=== PATIENT | male | born 1955 | race Caucasian/White ===

== ENCOUNTER 2017-03-31 21:26 | Observation (INO) | payer OTHER ==
[~2017-03-31] VITALS: Ht 180.3 cm; Wt 102.8 kg
[~2017-03-31 21:26] MED LIST: ASPI-973 PO; ATOR20TA PO; CLOP75TA28 PO; LOSA50TA37 PO; METF500T4 PO; METO-272 PO; MULT-1018 PO; NITR0.4T6 SL; OMEG1CAP99 PO; SPIR25TA3 PO; VIT D3 PO; ZINC50TA4 PO
[2017-03-31 21:38] VITALS: BP 115/64; PULSE 74; RESP 18; O2SAT 99
--- NOTE | 2017-03-31 21:52 | ED.REPORT ---
HPI-Abd Pain M 40 and Over Date of Service Mar 31, 2017 ED Provider: Esau Delgadillo MD Pt is a 61 year old male with a hx of DM, MA, HTN and chronic lymphocytic leukemia presenting to the ED complaining of abdominal pain onset this morning. Associated symptoms include nausea, vomiting, diarrhea, malaise, and a fever ( 102.7 at home). Denies bloody diarrhea, dysuria, decreased urination, or urinary frequency. Has CLL, thought to be presently in remission, no cytotoxic chemotherapy in about 6 months Nursing Notes Stated Complaint: HIGH FEVER, VOMITING AND DIARRHEA Chief Complaint: Male Abdominal Pain Nursing Notes Reviewed: Yes Allergies: Coded Allergies: allopurinol (Verified Allergy, Severe, rash , swelling to face, and causes sores in mouth and nose, 03/31/17) Pt had rash all over body and face, swelling to face, and had sore to oral cavitiy and nose niacin (Verified Allergy, Severe, RASH, 03/31/17) Penicillins (Verified Allergy, Intermediate, Rash, 03/31/17) Scheduled ([Vit D3]) 2,000 IU PO DAILY Aspirin (Aspirin) 81 Mg Tablet 81 MG PO DAILY Atorvastatin (Lipitor) 20 Mg Tablet 20 MG PO DAILY Clopidogrel (Clopidogrel) 75 Mg Tablet 75 MG PO DAILY HOLD FOR SURG Losartan Potassium (Losartan Potassium) 50 Mg Tablet 25 MG PO DAILY Metformin (Metformin) 500 Mg Tablet 500 MG PO BID Metoprolol Succinate ER (Metoprolol Succinate ER) 50 Mg Tab.er.24h 25 MG PO DAILY Multivitamin (Multi Vitamin Daily) 1 Each Tablet 1 EACH PO DAILY Nitroglycerin SL (Nitroglycerin SL) 0.4 Mg Tab.subl 0.4 MG SL PRN Spironolactone (Spironolactone) 25 Mg Tablet 12.5 MG PO DAILY Zinc Gluconate (Zinc) 50 Mg Tablet 50 MG PO DAILY Miscellaneous Medications Empire-3 Fatty Acids/Fish Oil (Fish Oil 1,200 mg Softgel) 1 Each Capsule 2 EACH PO General Time Seen by MD: 21:49 Chief Complaint Abdominal pain Hx Obtained From: Patient Arrived By: Walk-in Sudden in Onset?: Yes Onset Occurred: 9 - 12 hours ago Symptom Duration: Since onset Progression since Onset: Constant Location: : Diffuse Quality: Painful Severity: Current: Moderate Severity: Maximum: Moderate Recent Healthcare: No recent hospitalization Similar Sx Previous: No Past Medical History Past Medical History Notes: Oncologist: Dr. 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 Physical Exam Initial Vital Signs Vital Signs (First) Date Time Temp Pulse Resp B/P Pulse Ox O2 Delivery O2 Flow Rate FiO2 03/31/17 21:38 37.0 74 18 115/64 99 Room Air Initial VS: Reviewed Head / Eyes: Atraumatic, Normocephalic, PERRL Neurologic: Alert, Oriented, Nonfocal Psychiatric: Mood/affect normal, Behavior normal, Normal thought content General/Constitutional: Awake, Alert, No acute distress Respiratory / Chest: Atraumatic, Breath sounds NL, Breath sounds = bilat, No respiratory distress Cardiovascular: Heart rate NL, Regular rhythm, Heart sounds NL, No gallop, No murmurs, No rubs Abdomen: Atraumatic, BS normoactive Abdominal right sided tenderness Back: Atraumatic, Inspection NL, Full range of motion, No CVA tenderness ENT: Atraumatic, Airway patent, Mucous membranes moist, Pharynx NL Skin: Warm, Dry, Intact Neck: Atraumatic, Supple, No meningismus, Full range of motion, No adenopathy, No JVD Interpretation & Diagnostics Lab Results Interpretation Result Diagram: 03/31/17215403/31/172154 Test 03/31/17 21:55 03/31/17 22:52 White Blood Count 1.8th/mm3 (3.8-10.1) Red Blood Count 4.10mil/mm3 (4.40-5.80) Hemoglobin 13.5g/dL (13.8-17.2) Hematocrit 37.7% (41.0-50.0) Mean Corpuscular Volume 92.0fL (81-100) Mean Corpuscular Hemoglobin 32.9pg (27.0-35.0) Mean Corpuscular Hemoglobin Concent 35.8% (32.0-37.0) Red Cell Distribution Width 12.8% (12.3-15.4) Platelet Count 108bil/L (150-400) Neutrophils (%) (Auto) 87.0% (40-74) Lymphocytes (%) (Auto) 10.3% (14-46) Monocytes (%) (Auto) 1.6% (4-12) Eosinophils (%) (Auto) 0% (0-5) Basophils (%) (Auto) 0% (0-3) Hematology Comments Sodium Level 134mEq/L (134-144) Potassium Level 3.6mEq/L (3.5-5.2) Chloride Level 95mEq/L (97-108) Carbon Dioxide Level 21mmol/L (18-29) Blood Urea Nitrogen 14mg/dL (8-27) Creatinine 0.84mg/dL (0.76-1.27) Estimat Glomerular Filtration Rate 99mL/min (>59) Glucose Level 153mg/dL (60-99) Calcium Level 9.5mg/dL (8.5-10.1) Magnesium Level 1.5mg/dL (1.6-2.6) Aspartate Amino Transf (AST/SGOT) 20U/L (0-50) Alanine Aminotransferase (ALT/SGPT) 19U/L (0-44) Alkaline Phosphatase 62U/L (25-160) Total Protein 6.9g/dL (6.4-8.4) Albumin 4.2g/dL (3.4-5.0) Lipase 22U/L (13-60) Hold Siegel Top Tube Received (Received) Urine Color Yellow (YELLOW) Urine Appearance Clear (CLEAR,HAZY) Urine pH 6.0 (5.0-8.0) Urine Specific [place] 1.010 (1.003-1.035) Urine Protein Negativemg/dL (NEG,TRACE) Urine Glucose (UA) 500mg/dL (NEGATIVE) Urine Ketones Negativemg/dL (NEGATIVE) Urine Occult Blood Trace (NEGATIVE) Urine Nitrite Negative (NEGATIVE) Urine Bilirubin Negative (NEGATIVE) Urine Urobilinogen Normalmg/dL (NORMAL) Urine Leukocyte Esterase Negative (NEGATIVE) Urine RBC 0-2/hpf (0-2) Urine WBC 0-5/hpf (0-5) Urine Epithelial Cells Occasional/hpf (NONE-MOD) Urine Crystals None seen (NONE SEEN) Urine Bacteria None/hpf (NONE-FEW) Urine Hyaline Casts None/lpf (NONE) Urine Granular Casts None seen (NONE SEEN) Urine Waxy Casts None seen (NONE SEEN) Urine Red Blood Cell Casts None seen (NONE SEEN) Urine White Blood Cell Casts None seen (NONE SEEN) Urine Mucus Present (None Seen) Urine Trichomonas None seen (NONE SEEN) Urine Yeast None (NONE SEEN) Urinalysis Comment None Urine Culture Reflexed Not indicated X-Ray Chest Interpretation Chest Xray Interpretation: No acute disease. View: Portable, 1 view Interpretation / Wet Read by: Wet read ED physician Re-Eval/Medical Decision Med Decision/Clinical Course 6-year-old male with history of CLL presenting with a fever and diarrhea. Vital signs are reassuring however he looks ill. Blood cultures have been obtained, no other source for fever as identified at present, he has not yet produced stool though the PCR panel has been ordered. Was treated with antipyretics and IV fluids as well as nausea medications. Will be admitted to the hospitalist service on observation status. ANC 1566 Time of Eval: 23:08 Patient Status: Condition improved Re-Evaluation/Progress Note: Pt reports that he feels hot, but his abdominal pain is improved. RLQ tenderness to palpation. Discussed plan for probable admission. Pt understands and agrees. Time of Eval: 23:38 Patient Status: Condition improved Re-Evaluation/Progress Note: Discussed consultation with Dr. Salas and plan for admission. Consultation #1: Referral / Consult Name: Asher Salas MD Call Returned at: 23:14 Supervisor Sandblaster: Agrees with plan Note: Oncology. Agrees with plan for admission. Consultation #2: Referral / Consult Name: Sarah Larsen DO Consulted With: Hospitalist Call Returned at: 00:00 Supervisor Sandblaster: Will see patient, Agrees with plan, Accepts admit Counseled Regarding: Diagnosis, Lab results, Need for admission Discharge & Departure Primary Impression: Fever Fever type: unspecified Qualified Code: R50.9 - Fever, unspecified Additional Impressions: Diarrhea Diarrhea type: unspecified type Qualified Code: R19.7 - Diarrhea, unspecified CLL (chronic lymphocytic leukemia) Disposition: ADMITTED TO HOSPITAL Vital Signs - All Vital Signs Date Time Temp Pulse Resp B/P Pulse Ox O2 Delivery O2 Flow Rate FiO2 03/31/17 23:59 37.9 87 24 107/58 91 Room Air 03/31/17 21:38 37.0 74 18 115/64 99 Room Air )( All Prior VS Reviewed: Yes Condition: Improved Referrals: Moshe Cloud MD (PCP) Sandyibkuldip Attestation Portions of this note were transcribed by Argenis Correa. I, Dr. Delgadillo personally performed the history, physical exam and medical decision-making; I reviewed and confirmed the accuracy of the information in the transcribed note. Signed by : Raul Benitez, 03/31/2017. copies to: Moshe Cloud MD, Donald L MD Mar 31, 2017 21:52 ARGENIS CORREA Mar 31, 2017 21:59
[2017-03-31 22:04] LABS: BASOPHILS % (AUTO) 0 % (0-3); EOSINOPHILS % (AUTO) 0 % (0-5); Mean Corpuscular Hemoglobin 32.9 pg (27.0-35.0)
[2017-03-31 22:06] LABS: MONOCYTES % (AUTO) 1.6 % (4-12); Platelet Count 108 bil/L (150-400)
[2017-03-31 22:35] LABS: Magnesium 1.5 mg/dL (1.6-2.6)
[2017-03-31 22:59] LABS: APPEARANCE,URINE CLEAR (CLEAR,HAZY); COLOR,URINE YELLOW (YELLOW); OCCULT BLOOD,URINE TRACE (NEGATIVE); UROBILINOGEN,URINE NORMAL (NORMAL)
[2017-03-31] MEDS ORDERED: 0.9% Sodium Chloride 1,000 ML IV ONE (23:40)
[2017-03-31 23:59] VITALS: BP 107/58; PULSE 87; RESP 24; O2SAT 91
[2017-04-01] VITALS (15 sets, daily range): BP systolic 99–139; BP diastolic 54–80; PULSE 65–82; RESP 12–20; O2SAT 94–100
[2017-04-01] MEDS ORDERED: Polyethylene Glycol (PEG) 17 Gm Powder PO PRN (00:10)
[2017-04-01] MEDS ORDERED: Ondansetron 2 mg/mL 2 mL Inj IVPUSH PRN ×2 (00:10→18:55)
[2017-04-01] MEDS ORDERED: Alum-Mag Hydrox-Simeth 30 mL Suspension PO PRN (00:10)
[2017-04-01] MEDS ORDERED: Ondansetron 2 mg/mL 2 mL Inj ONE (00:51)
[2017-04-01] MEDS ORDERED: Succinylcholine Chloride 20 mg/mL 5 mL Inj ONE (00:51)
[2017-04-01] MEDS ORDERED: fentaNYL-PF 50 mCg/mL 2 mL Inj ONE (00:51)
[2017-04-01] MEDS ORDERED: Glycopyrrolate 0.2 MG/ML 1mL Inj ONE (00:51)
[2017-04-01] MEDS ORDERED: Neostigmine 1 mg/mL 10 mL Inj ONE (00:51)
[2017-04-01] MEDS ORDERED: Propofol 10,000 mCg/mL 20 mL Inj ONE (00:51)
[2017-04-01] MEDS: Heparin 5,000 Unit/mL Inj SUBQ SCH ×2 (01:32→12:01)
[2017-04-01] MEDS: 0.9% Sodium Chloride 1,000 ML IV SCH ×3 (01:32→22:24)
[2017-04-01 01:45] LABS: Bilirubin, Direct 0.4 mg/dL (0.0-0.3)
--- NOTE | 2017-04-01 01:58 | PCM.HPMED ---
Subjective Date of Service Apr 01, 2017 Primary Provider: Admitting Physician: Sarah Larsen DO Primary Care Physician: Moshe Cloud MD Attending Physician: Sarah Larsen DO Chief Complaint: Abdominal pain History of Present Illness: Sher Dickerson is a 61-year-old man with past medical history significant for mild diabetes, hypertension, dyslipidemia, coronary artery disease, prior AL in June 2014, CLL who presented to the [facility] Emergency Department due abdominal pain that started today. It began as epigastric and felt like "gas" and migrated down to the RLQ but feels fairly mild. The patient also noted nausea, vomiting, diarrhea, malaise, and a fever of 102.7 which was measured at home. He denies any hematemesis, hematochezia, dysuria, frequency, chest pain, cough. Reports no significant symptoms. No sick contacts. Denies any recent travel or antibiotic use. In the emergency department his vitals were stable. He was given 1L NS. Oncology was consulted by the ED physician who agreed to admission but no antibiotics were recommended. The patient has completed 4 cycles of FCR and is monitored without active therapy currently. Patient's white count during his last oncology visit was normal at 5.7 Review of Systems: A comprehensive review of systems was conducted with the patient and found to be negative except as above in the History of Present Illness Allergies Coded Allergies: allopurinol (Verified Allergy, Severe, rash , swelling to face, and causes sores in mouth and nose, 03/31/17) Pt had rash all over body and face, swelling to face, and had sore to oral cavitiy and nose niacin (Verified Allergy, Severe, RASH, 03/31/17) Penicillins (Verified Allergy, Intermediate, Rash, 03/31/17) Home Medications Sher Dickerson [id number] 1955 04/27/2016 04:00 PM Page: 08/31 aspirin 81 mg tablet,delayed release take 1 tablet by oral route every day atorvastatin 20 mg tablet take 1 tablet by oral route every day fenofibrate nanocrystallized 48 mg tablet take 1 tablet by oral route every day losartan 50 mg tablet take 0.5 tablet by oral route every day metFORMIN HCL 500 MG TABLET TAKE 1 TABLET BY MOUTH 2 TIMES EVERY DAY WITH MORNING AND EVENING MEALS metoprolol succinate ER 50 mg tablet,extended release 24 hr take 0.5 tablet by oral route every day Plavix 75 mg tablet take 1 tablet by oral route every day spironolactone 25 mg tablet take 0.5 tablet by oral route every day PMH Coronary artery disease s/p stent placement Hypertension. Dyslipidemia. 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 There was 45 % CD 38 expression, and highly complex karyotype, with FISH positive for loss of 1 VALERIA signal in 70% of nuclei, and lost of 1 IgH signal in 59% of nuclei. CT scan on February 25, 2016, showed generalized adenopathy, the largest lymph node, 2.2 cm short axis in left external iliac. Surgical History None Family History Family history of hypertension. Social History Hx Alcohol Use: Yes Hx Substance Use: No Hx Tobacco Use: No Smoking Status: Never Smoker Exam Vital Signs Vital Sign - Last Date Time Temp Pulse Resp B/P Pulse Ox O2 Delivery O2 Flow Rate FiO2 03/31/17 23:59 37.9 87 24 107/58 91 Room Air Exam General: No acute distress, well-developed, well-nourished, appropriately interactive HEENT: Normocephalic, atraumatic. External ears without defect. Pupils equal, round, and reactive to light and accommodation. Anicteric sclerae, moist conjunctivae, and no lid lag. Oropharynx free of erythema and cobble stoning with moist mucosa. Neck: Supple with full range of motion. No jugular venous distension. No lymphadenopathy or thyromegaly. Cardiovascular: Regular rate and rhythm with no murmurs, rubs, or gallops appreciated Pulmonary: Clear to auscultation bilaterally with no crackles, wheezes, or rhonchi. Normal respiratory effort with no use of accessory muscles. Abdomen: Bowel tones present. Obese. Soft, mild tenderness to palpation of RLQ, nondistended. No hepatosplenomegaly or masses appreciated. Extremities: No clubbing, cyanosis, edema, or lymphadenopathy appreciated. Skin: Normal temperature, turgor, and texture; no rash, ulcers, or subcutaneous nodules appreciated. Neurological: Cranial nerves grossly intact. Normal muscle strength, tone, and bulk. Normal speech. No known gait impairment. Psychiatric: Normal mood and affect. Alert and oriented to person, place, and time. Lab and Diagnostics Result Diagram: 03/31/17215403/31/172154 X-Rays, CTs and MRIs Reviewed by author, negative for acute pathology. Assessment & Plan Sher Dickerson is a 61-year-old man with past medical history significant for mild diabetes, hypertension, dyslipidemia, coronary artery disease, prior AL in June 2014, CLL who presented to the [facility] Emergency Department due fever and abdominal pain that started today. Fever with leukopenia and abdominal pain. 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 -No Neutropenia. ANC 1566 -No obvious signs or site of infection at this time. -Chest X ray showed no pneumonia and Urinalysis is negative. No skin infections noted. -monitor closely with IV fluids resuscitation -CT scan abdomen and pelvis to look for infectious etiology such as colitis -Procalcitonin ordered -Stool PCR -Blood cultures performed High-risk chronic lymphocytic leukemia -Completed 4 cycles of FCR. -Oncology consulted Chronic issues, present on admission, stable: Likely history of Gilbert's disease -Previously noted mild elevation of T. Bili without evidence of cholecystitis Type 2 Diabetes - hold Metformin while inpatient - Blood glucose checks, if consistently above 180 initiate Lantus Coronary artery Disease - Stable with no anginal symptoms or equivalent symptoms - continue Aspirin and Plavix - continue Statin and beta jessi Hypertension - continue Losartan 25 mg daily, Aldactone 12.5 mg daily and Metoprolol 25 mg daily Hyperlipidemia - Atorvastatin 20 mg daily and Fenofibrate 48 mg daily CODE STATUS: FULL CODE Patient is admitted under observation status with expected length of stay less than 2 midnights due to severity of presenting symptoms, risk of adverse event, and complexity of treatment plan. VTE Prophylaxis: Sub-Q Heparin (Unfractionated) Resuscitation Status: CPR: Attempt Resuscitation Attending Statement The patient was seen and examined together with house staff on 04/01/2017 and I agree with the history, exam and plan as outlined in the note above. Sada Quijano DO Apr 01, 2017 01:01 Sarah Larsen DO Apr 01, 2017 05:09
--- NOTE | 2017-04-01 06:37 | NUR ---
Anxiety anxious about multiple things at start of shift. 1:1 provided to answer all questions and prn Ativan given per patient request. Once questions answered and Ativan taken patient less anxious. Currently resting in bed without any complaints. Addendum: 04/01/17 at 0639 by CRIS LYON RN Charted on wrong patient. Please disregard this note.
--- NOTE | 2017-04-01 06:39 | NUR ---
Admit Admitted to 1030 from ED via stretcher. Able to ambulate on arrival. Denies CP or discomfort. Tele SR. RA w/o c/o SOB. Currently denies n/v/d for which he stated he was experiencing prior to admit. Denies abdominal pain at this time but states RLQ pain at home. NS @ 100ml/hr initiated per orders. Personal belongings at bedside per patient request. Oriented to room and call light use with return demonstration. Currently resting in bed without any complaints.
[2017-04-01] MEDS ORDERED: FENO48TA4 PO (07:11)
--- NOTE | 2017-04-01 07:57 | DRSVH ---
PROCEDURE: X-RAY CHEST ONE VIEW, PORTABLE ([id number]) INDICATIONS: fever TECHNIQUE: One view of the chest was acquired. COMPARISON: [facility], CR, XR CHEST 1VW (PORTABLE), 05/14/2016, 1:30. FINDINGS: Surgical changes and devices: None. Lungs and pleura: No pleural effusions or pneumothorax. Lungs are clear. Mediastinum: Mediastinal contours appear normal. Heart size is normal. Bones and chest wall: No suspicious bony lesions. Overlying soft tissues appear unremarkable. IMPRESSION: No acute disease. Dictated by: Troy Polanco M.D. on 04/01/2017 at 7:54 Approved by: Troy Polanco M.D. on 04/01/2017 at 7:55
[2017-04-01 10:02] LABS: MONOCYTES % (AUTO) 6.3 % (4-12); Mean Corpuscular Hemoglobin 32.8 pg (27.0-35.0); Mean Corpuscular Volume 95.2 fL (81-100); NEUTROPHILS % (AUTO) 85.8 % (40-74); Platelet Count 96 bil/L (150-400)
[2017-04-01 10:03] LABS: BASOPHILS % (AUTO) 0.1 % (0-3); EOSINOPHILS % (AUTO) 0.1 % (0-5)
[2017-04-01 10:12] LABS: Magnesium 1.7 mg/dL (1.6-2.6)
--- NOTE | 2017-04-01 10:52 | DRSVH ---
PROCEDURE: CT ABDOMEN AND PELVIS WITH CONTRAST ([id number]) INDICATIONS: abd pain, CLL TECHNIQUE: After the administration of oral and intravenous contrast, 5 mm thick sections acquired from the diap hragms to the symphysis. 5 mm thick coronal and sagittal reformats were performed. For radiation do se reduction, the following was used: automated exposure control, adjustment of mA and/or kV accordi ng to patient size. COMPARISON: [facility], CT, CT ABD PELVIS W CON, 05/14/2016, 3:51. FINDINGS: Image quality: Excellent. ABDOMEN: Lung bases: Lung bases are clear. Heart size is normal. Solid organs: Liver and spleen are normal in size and enhancement. Gallbladder appears normal. Yonatan iary system is non-dilated. Pancreas enhances normally. No adrenal nodules. Kidneys are normal in size and enhancement, without hydronephrosis. Peritoneum and bowel: Stomach, small bowel, and colon loops are normal in caliber and wall thickness . No free fluid or air. Nodes and vessels: No retroperitoneal or mesenteric adenopathy. Aorta and inferior vena cava are no rmal in caliber. Miscellaneous: No ventral hernias. PELVIS: Genitourinary: Bladder wall thickness is normal. Miscellaneous: No inguinal hernias or adenopathy. At the right lower quadrant adjacent to the cecum there is mild edema in the pericolonic fat, and the appendix is distended, elongated, measures up to 1.3 cm in maximal diameter and shows CT findings characteristic of acute appendicitis. No periappen diceal abscess found. Bones: No suspicious bony lesions. No vertebral body compression fractures. IMPRESSION: Acute appendicitis right lower quadrant, without periappendiceal abscess. An appendicoli th is not seen. No adenopathy is found. The spleen and liver are normal in size. Surgical consultation is recommended at this time. This information was immediately called and discu ssed in detail with the nurse taking care of the patient who will contact the hospitalist (I have not been able to contact the hospitalist at the phone number provided). If the nurse cannot contact the hospitalist she ([email or web address]) will directly contact the surgeon senior electrical controls engineer with this information. Dictated by: Troy Polanco M.D. on 04/01/2017 at 10:38 Approved by: Troy Polanco M.D. on 04/01/2017 at 10:50
[2017-04-01] MEDS ORDERED: Piperacillin-Tazo 3.375 Gm Inj 3.375 GM in Dextrose 5% Minibag Plus 50 ML IV SCH (11:05)
--- NOTE | 2017-04-01 14:12 | CONS ---
[address] [address] CONSULTATION REPORT PATIENT: RUPINDER GARRETT : 1955 MR#: [id number] ADMIT: 04/01/2017 JOB ID: [id number] DATE OF SERVICE: 04/01/2017 CHIEF COMPLAINT: Abdominal pain. HISTORY OF PRESENT ILLNESS: The patient is a 61-year-old man with a history of CLL, who presented to the emergency department last night with an approximately 1-day history of right flank pain, as well as nausea, vomiting, diarrhea, and fever of 102.7. Because he is an established oncology patient, he spoke with them over the phone and they recommended admission to the hospital without antibiotics. He has not had any blood in his stool. Today, he continues to have pain which is in his right flank and right lower quadrant. He states that he has had pain like this in the past but never as severe. PAST MEDICAL HISTORY: CLL, last treated with chemotherapy approximately six months ago. Mild type 2 diabetes mellitus, hypertension, hyperlipidemia, coronary artery disease with myocardial infarction in June 2014. PAST SURGICAL HISTORY: Port-A-Cath placement. MEDICATIONS: Include: 1. Aspirin 81 mg. 2. Atorvastatin. 3. Fenofibrate. 4. Losartan. 5. Metformin. 6. Metoprolol. 7. Plavix. 8. Spironolactone. SOCIAL HISTORY: He has never smoked. He drinks alcohol socially and denies illicit drug use. FAMILY HISTORY: Positive for hypertension. REVIEW OF SYSTEMS: A 10-point review of systems is negative except as described in the history of present illness, specifically no unplanned weight loss. PHYSICAL EXAMINATION: Body mass index 31.6. Temperature 36.6, pulse 81, blood pressure 115/68, saturation 94% on room air. General: He is sitting up in bed, in no acute distress. HEENT: Sclerae are anicteric. Mucous membranes are moist. Neck: No lymphadenopathy. Chest: Clear to auscultation bilaterally. Heart: Regular rate and rhythm. No murmurs. Abdomen is obese, but soft, nondistended. He is mildly tender in the right flank. There are no hernias. There are no palpable masses. Extremities: No edema. Neuro: No deficits. Psychiatric: Affect is appropriate. LABORATORIES: White blood cell count is 12.1, hematocrit 36.0, platelets 96. Creatinine 0.85, glucose 175. Bilirubin 1.8. Albumin 3.8. Procalcitonin 81.1. IMAGING: A CT scan of the abdomen and pelvis shows a distended appendix with mild edema in the pericolonic fat. Appendix measures 1.3 cm in maximum diameter. No evidence of periappendiceal abscess. There is no appendicolith. No adenopathy is seen. Liver and spleen are normal in size. ASSESSMENT AND PLAN: A 61-year-old man with a history of CLL, with acute appendicitis. We have reviewed the pathophysiology of appendicitis. While some patients may be appropriate for nonoperative treatment with antibiotics alone without an appendicolith, I do not think that is appropriate for this patient, who potentially could have a mild degree of immunosuppression from his CLL. Note that he was leukopenic upon admission with his white blood cell count, last night being 1.8. Unfortunately, immediately after his CT scan, he had a full breakfast, so has only been n.p.o. since 11:00 a.m. Recommendation is that we go to surgery after 8 hours of n.p.o. for laparoscopic appendectomy. Technical aspects of surgery were discussed. Risks of surgery were discussed, including, but not limited to, bleeding, infection, conversion to open surgery, injury to other structures. All his questions were answered. He will be placed on antibiotics. Postoperative course will depend on findings at the time of surgery regarding perforation or not of the appendix.
--- NOTE | 2017-04-01 15:22 | NUR ---
NPO Pt has been NPO since about 1030AM. He will be going for surgery this evening around 1900. pt and aware of plan of care. NS infusing at 100cc/hr. pt AOX3. Care ongoing.
[2017-04-01] MEDS: HYDROcodone-APAP 5-325 mg Tablet PO PRN (15:50)
[2017-04-01] MEDS ORDERED: Lactated Ringer's 1,000 ML IV ONE ×2 (17:53→19:39)
[2017-04-01] MEDS ORDERED: Lactated Ringer's 1,000 ML IV SCH (18:51)
[2017-04-01] MEDS ORDERED: Lactated Ringer's 500 ML IV PRN (18:51)
--- NOTE | 2017-04-01 18:54 | NUR ---
Off floor to OR Pt AOX3. at bedside. Consent signed this morning with Dr. Ramirez. Tele made aware pt off to OR. BG 128.
[2017-04-01] MEDS ORDERED: Labetalol 5 mg/mL 4 mL Inj IV PRN (18:55)
[2017-04-01] MEDS ORDERED: HYDROmorphone 1 mg/mL Inj IVPUSH PRN (18:55)
[2017-04-01] MEDS ORDERED: MetoCLOpramide 5 mg/mL 2 mL Inj IVPUSH PRN (18:55)
[2017-04-01] MEDS ORDERED: fentaNYL-PF 50 mCg/mL 2 mL Inj IVPUSH PRN (18:55)
[2017-04-01] MEDS ORDERED: Atropine 0.4 mg/mL Inj IVPUSH PRN (18:55)
[2017-04-01] MEDS ORDERED: Phenylephrine 10,000 mCg/mL Inj IVPUSH PRN (18:55)
[2017-04-01] MEDS ORDERED: EPHEDrine Sulfate 50 mg/mL Inj IVPUSH PRN (18:55)
--- NOTE | 2017-04-01 19:32 | PCM.HPANE ---
Patient Data Surgeon Admitting Provider:Sarah Larsen DO Attending Provider:Jim Hawkins MD Primary Care Physician:Moshe Cloud MD Other Provider: Reason for Visit Febrile Illness,Diarrhea Cell FEBRILE ILLNESS,DIARRHEA CELL Ht/WT & BMI Height (Feet): 5 Height (Inches): 11.00 Weight (Kilograms): 102.800 Body Mass Index 31.73 Allergies Coded Allergies: allopurinol (Verified Allergy, Severe, rash , swelling to face, and causes sores in mouth and nose, 03/31/17) Pt had rash all over body and face, swelling to face, and had sore to oral cavitiy and nose niacin (Verified Allergy, Severe, RASH, 03/31/17) Penicillins (Verified Allergy, Intermediate, Rash, 03/31/17) Past Anesthesia History Anesthesia History: Denies:: Abnormal Airway, Anesthesia Reactions, Difficult Intubation, Fam Anesthesia Reaction, Fam Malignant Hypertherm, Malignant Hyperthermia Diabetes History Hx Diabetes?: Yes Type of Diabetes: Type II Glycemic Control: Oral Medication Current Bedside Blood Glucose: 163 MRSA MRSA: No Medications Blood Thinner: Aspirin, Plavix Hypertension Medication: Yes Home Meds Incl Beta Michela: No Reported Medications Fenofibrate Nanocrystallized (Fenofibrate)48 Mg Dzxrns50 Mg PO DAILY Ref 0 04/01/17 Multivitamin (Multi Vitamin Daily)1 Each Tablet1 Each PO DAILY 30 Days Ref 0 04/12/16 Zinc Gluconate (Zinc)50 Mg Apapxv52 Mg PO DAILY 02/15/16 [Vit D3] No Conflict Check2,000 Iu PO DAILY 02/15/16 [place]-3 Fatty Acids/Fish Oil (Fish Oil 1,200 mg Softgel)1 Each Capsule2 Each PO 02/15/16 Metformin 500 Mg Ommwym401 Mg PO BID Ref 0 02/15/16 Nitroglycerin SL 0.4 Mg Tab.subl0.4 Mg SL PRN 02/15/16 Aspirin 81 Mg Jmbqgo02 Mg PO DAILY Ref 0 02/15/16 Spironolactone 25 Mg Gxhwtl85.5 Mg PO DAILY #30 TABLET Ref 0 02/15/16 Clopidogrel 75 Mg Vkddpn96 Mg PO DAILY Ref 0 HOLD FOR SURG 02/15/16 Atorvastatin (Lipitor)20 Mg Nimpuo36 Mg PO DAILY Ref 0 02/15/16 Losartan Potassium 50 Mg Yjqcuj69 Mg PO DAILY 02/15/16 Metoprolol Succinate ER 50 Mg Tab.er.24h25 Mg PO DAILY Ref 0 02/15/16 History History of ENT Problems?: Yes HEENT History: Positive for:: Hearing Problem Denies:: Abnormal Airway Cataracts Difficult Intubation Dysphagia Glaucoma Sinus Problem TMJ Denture Type: None Teeth Condition: Within Normal Limits Hx of Heart Problems?: Yes Cardiovascular History: Positive for:: Chest Pain (prior to stent X 2 placement in one artery) Hypertension Denies:: AICD Cardiac Surgery Congestive Heart Failure Edema Heart Murmur Irregular Heartbeat Pacemaker Thrombophlebitis Other Cardiac History: > 4 METS Not taking metoprolol or plavix per patient and . Hx of Respiratory Problem?: No Respiratory History: Denies:: Asthma COPD Chest Surgery Cough Dyspnea Emphysema Hemoptysis Oxygen Administration Pneumonia Pulmonary Embolism Tuberculosis Use of C-PAP Machine Use of Inhalers / NEBS Hx Neurologic Problems?: No Neurological History: Denies:: Alzheimer's Disease CVA Dementia Dizziness Headaches Multiple Sclerosis Parkinson's Disease Peripheral Neuropathy Seizures TIA Hx of GI Problems?: No Hx of Problems?: No Genitourinary History: Denies:: HX of Hemodialysis Kidney Stones Urinary Tract Infection HX of Peritoneal Dialysis: No Male Hx: Denies:: Prostate Problems Scrotal Mass Testicular Surgery Hx Musculoskeletal Problems?: No Musculoskeletal History: Denies:: Back Injury Joint Replacement Musculoskeletal Trauma Hx of Psycho/Social Problems?: No Psycho Social History: Denies:: Anxiety Bipolar Disorder Hx Depression Suicide Attempt Hx Surgeries?: Yes (port, stents) Hx Any Other Health Problems?: Yes Other History: Positive for:: Cancer (New CLL diagnosis) Hospitalization (Only for port placement) Denies:: Thyroid Disease History Blood Transfusions: Positive for:: Accept Blood Products? Denies:: Blood Transfusions Hx Diabetes: YesBedside Blood Glucose: 163 Hx Alcohol Use: YesHx Substance Use: No Smoking Status: Never Smoker Have You Smoked inLast 12 mo: No Stop/Bang Treated for Sleep Apnea?: No Do You Have a CPAP Machine?: No S-Snoring: Do You Snore Loudly: Yes T-Tired: feel tired, fatigued: Yes O-Obsered: Observed not breath: Yes P-Blood Pressure: treated: Yes B- Body Mass Index > 35 kg/m2: No A- Age over 50: Yes N- Neck Large Circumference: No G- Gender Male: Yes TANA Total Score: 5 TANA Risk Assessment: High Risk, =/>3 Yes Risk Assessment Category Category 1A: Patient has history of documented sleep apnea, and HAS NOT received any narcotic, sedative or anesthesia administration during this stay. Category 1B: Patient has history of documented sleep apnea, and HAS received any narcotic , sedative or anesthesia administration during this stay Category 2: Patient has SUSPECTED Obstructive Sleep Apnea, and HAS received any narcotic , sedative or anesthesia administration during this stay. Category 3: Patient has SUSPECTED Obstructive Sleep Apnea and HAS NOT received narcotic, sedative or anesthesia administration during this stay. Category 4: Outpatient in Procedural Areas with known sleep apnea or who screen positive for High Risk via the STOP/BANG questionnaire. Exam Exam Vital Signs Vital Signs Date Time Temp Pulse Resp B/P Pulse Ox O2 Delivery O2 Flow Rate FiO2 04/01/17 15:41 36.7 68 107/71 04/01/17 14:10 99/64 04/01/17 13:24 37.2 71 17 99/61 96 Room Air 04/01/17 10:33 81 General Appearance: Alert, Oriented X3, Cooperative, No Acute Distress HEENT/AIRWAY: MP 2 Lungs: Clear to Auscultation, Normal Air Movement Heart: Exam Unremarkable, Regular Rate/Rhythm, No Murmurs/Rubs/Gallops Meds/Labs/Diagnostics Admission Meds Current Medications Sodium Chloride (Normal Saline) 1,000 ml @ 0 mls/hr Q0M ONCE IV Last administered on 03/31/17 23:58; Start 03/31/17 at 23:40; Stop 03/31/17 at 23:41; Status DC Heparin Sodium (Porcine) 5000 unit 5,000 unit Q8 SUBQ Last administered on 12:01; Start 04/01/17 at 00:30; Stop 04/01/17 at 16:56; Status DC Sodium Chloride 1,000 ml @ 100 mls/hr Q10H IV Last administered on 04/01/17 12 :01; Start 04/01/17 at 00:07 Piperacillin Sod/ Tazobactam Sod/ Dextrose/Water (Zosyn 3.375 Gm Inj/D5W Minibag Plus) 50 ml @ 12.5 mls/hr Q8 IV Last administered on 04/01/17 12:01; Start 8/5/17 at 11:05; Stop 04/01/17 at 16:56; Status DC Bedside Blood Glucose: 163 Labs Test 03/31/17 21:55 03/31/17 22:52 04/01/17 01:33 04/01/17 09:20 Hematology Comments Lipase 22U/L (13-60) Hold Siegel Top Tube Received (Received) Urine Color Yellow (YELLOW) Urine Appearance Clear (CLEAR,HAZY) Urine pH 6.0 (5.0-8.0) Urine Specific [place] 1.010 (1.003-1.035) Urine Protein Negativemg/dL (NEG,TRACE) Urine Glucose (UA) 500mg/dL (NEGATIVE) Urine Ketones Negativemg/dL (NEGATIVE) Urine Occult Blood Trace (NEGATIVE) Urine Nitrite Negative (NEGATIVE) Urine Bilirubin Negative (NEGATIVE) Urine Urobilinogen Normalmg/dL (NORMAL) Urine Leukocyte Esterase Negative (NEGATIVE) Urine RBC 0-2/hpf (0-2) Urine WBC 0-5/hpf (0-5) Urine Epithelial Cells Occasional/hpf (NONE-MOD) Urine Crystals None seen (NONE SEEN) Urine Bacteria None/hpf (NONE-FEW) Urine Hyaline Casts None/lpf (NONE) Urine Granular Casts None seen (NONE SEEN) Urine Waxy Casts None seen (NONE SEEN) Urine Red Blood Cell Casts None seen (NONE SEEN) Urine White Blood Cell Casts None seen (NONE SEEN) Urine Mucus Present (None Seen) Urine Trichomonas None seen (NONE SEEN) Urine Yeast None (NONE SEEN) Urinalysis Comment None Urine Culture Reflexed Not indicated Direct Bilirubin 0.4mg/dL (0.0-0.3) Lactate Dehydrogenase 286U/L (100-190) White Blood Count 12.1th/mm3 (3.8-10.1) Red Blood Count 3.78mil/mm3 (4.40-5.80) Hemoglobin 12.4g/dL (13.8-17.2) Hematocrit 36.0% (41.0-50.0) Mean Corpuscular Volume 95.2fL (81-100) Mean Corpuscular Hemoglobin 32.8pg (27.0-35.0) Mean Corpuscular Hemoglobin Concent 34.4% (32.0-37.0) Red Cell Distribution Width 13.1% (12.3-15.4) Platelet Count 96bil/L (150-400) Neutrophils (%) (Auto) 85.8% (40-74) Lymphocytes (%) (Auto) 5.8% (14-46) Monocytes (%) (Auto) 6.3% (4-12) Eosinophils (%) (Auto) 0.1% (0-5) Basophils (%) (Auto) 0.1% (0-3) Sodium Level 138mEq/L (134-144) Potassium Level 4.1mEq/L (3.5-5.2) Chloride Level 99mEq/L (97-108) Carbon Dioxide Level 23mmol/L (18-29) Blood Urea Nitrogen 11mg/dL (8-27) Creatinine 0.85mg/dL (0.76-1.27) Estimat Glomerular Filtration Rate 97mL/min (>59) Glucose Level 175mg/dL (60-99) Calcium Level 8.5mg/dL (8.5-10.1) Magnesium Level 1.7mg/dL (1.6-2.6) Total Bilirubin 1.8mg/dL (0.0-1.2) Aspartate Amino Transf (AST/SGOT) 26U/L (0-50) Alanine Aminotransferase (ALT/SGPT) 29U/L (0-44) Alkaline Phosphatase 48U/L (25-160) Total Protein 5.8g/dL (6.4-8.4) Albumin 3.8g/dL (3.4-5.0) Procalcitonin 81.10ng/mL (0.00-0.08) Plan Impression Patient chart reviewed, patient interviewed and anesthestic plan with risks, benefits, and alternatives discussed, and informed consent obtained. NPO per Anesth. Guidelines: Yes ASA Physical Status: ASA2 Mod Systemic Disease Anesthetic Plan: GA Bene/Risks/Altern/Consents: Yes HP Complete Prior to Induction: Yes Hugo Estrada MD Apr 01, 2017 17:55
[2017-04-01] MEDS ORDERED: Bupivacaine 0.5%/EPI 50 mL Inj INFILTRATE ONE (19:53)
--- NOTE | 2017-04-01 20:16 | PCM.SURGOP ---
Surgical Operative Report Date of Service: Apr 01, 2017 Pre Operative Diagnosis Acute appendicitis Post Operative Diagnosis Same, nonperforated Procedure: Laparoscopic appendectomy Surgeon and [employer]: Surgeon: Onesimo Ramirez MD Assistants: Bertram Horton PA-C Indication for Procedure 61-year-old man with a history of CLL who presented with right flank pain. He was initially leukopenic, but then today had a white blood cell count of 12. He had been febrile, with diarrhea, nausea and vomiting. A CT scan showed a distended appendix to 1.3 cm with periappendiceal inflammatory change. After discussion of risks and benefits, he agreed to proceed with laparoscopic appendectomy. Findings: The appendix was distended but not perforated. A small iatrogenic perforation occurred during positioning of the stapler. Procedure Details After smooth induction of general anesthesia, the patient was placed in the supine position with the left arm tucked. The abdomen was prepped and draped in wide sterile fashion. A procedural pause was performed according to the SCOAP checklist, and all were found to be in agreement. A curvilinear infraumbilical incision was made. Dissection was carried down with electrocautery until the midline fascia was incised vertically and the peritoneal cavity was entered without difficulty. Pneumoperitoneum was established. Two additional ports were placed under visualization. A 5 mm port was placed in the midline above the symphysis pubis, and a 12 mm port in the left lower quadrant, medial to the inferior epigastric vessels. The patient was placed head down with the right side up. The small bowel was retracted. The greater omentum was retracted. The appendix was visualized, which was retrocecal. It was indurated, but not perforated. It was bluntly mobilized and retracted. A window was created at the base of the appendix in the mesoappendix. The appendiceal stump was then divided using an Endo SENG stapler with a 45 mm blue load. During position of the stapler, a small iatrogenic perforation of the appendix occurred, and the stapler was fired closer to the cecum. The mesoappendix was divided with a vascular load, which required 2 separate staple firings. The appendix was placed into an Endo Catch bag. The right lower quadrant was irrigated and suctioned. The appendiceal stump was intact and the mesoappendix was hemostatic. The appendix was removed and passed off the field for permanent pathology. The 12 mm port was removed. The fascia of the 12 mm port site was closed using an inlet closure device with an 0 Vicryl suture. The remaining ports were removed under visualization and pneumoperitoneum was released. The skin incisions were closed using running 4- 0 Monocryl subcutaneous stitches. Steri-Strips and sterile dressings were applied. At the end of the case all needle and sponge counts were correct 2. The patient was awakened from anesthesia without difficulty, and taken to the recovery room in satisfactory condition, having tolerated the procedure well. Complications There were no periprocedural complications identified. Surgical Specimen Removed: Yes Specimen sent to Pathology: Yes Surgical Specimen description: Appendix Anesthetic Plan: GA Grafts, Implants: None Output, Estimated Blood Loss: 30 Blood Administration during keating: No Drains: None Catheters: None copies to: Mohse Cloud MD; Cary Munguia MD, Joshua D MD Apr 01, 2017 20:16
--- NOTE | 2017-04-01 20:43 | PCM.ANEP1 ---
Post Anesthesia PACU Phase 1 Assessment Vital Signs Vital Signs Date Time Temp Pulse Resp B/P Pulse Ox O2 Delivery O2 Flow Rate FiO2 04/01/17 20:35 37.1 65 12 110/54 98 Nasal Cannula 2 04/01/17 20:29 67 14 103/72 98 Nasal Cannula 2 04/01/17 20:25 72 16 119/80 97 Nasal Cannula 2 04/01/17 20:20 75 16 124/76 99 Simple Mask 8 04/01/17 20:18 36.7 77 14 139/64 100 Simple Mask 8 04/01/17 15:41 36.7 68 107/71 04/01/17 14:10 99/64 04/01/17 13:24 37.2 71 17 99/61 96 Room Air Anesthetic Administered: GA Level of Alertness: Awake, talking SEPULVEDA's with Equal Strength: Yes Pain: Yes Pain Scale Score: 3 Nausea or Vomiting: No CV Function & Hydration Stable: Yes Airway Device: Endotrachial Tube Oxygen Delivery: Simple Mask Lungs: Clear to Auscultation, Normal Air Movement PACU Phase 2 Assessment Complications: No Follow up Care: N/A Patient Instructions Provided: N/A Hugo Estrada MD Apr 01, 2017 20:43
[2017-04-01] MEDS: Piperacillin-Tazo 3.375 Gm Inj 3.375 GM in Dextrose 5% Minibag Plus 50 ML IV SCH (22:24)
--- NOTE | 2017-04-01 23:02 | NUR ---
Post Op Pt s/p lap appy - arrived via [facility] to OSC unit, 1030, at 2115. A&Ox3, SEPULVEDA, VSS, IV patent, Ambulated from [facility] to bed - gait steady, SCDs on, 3x lap sites with steris and bandaids - CDI, No complaints of pain until pt coughed - encouraged CDB and educated on splinting (additional pillow provided to pt), Pt tolerating clears with uriel crackers - no nausea, Educated re: gas pains that result from lap procedures - pt understanding, at bedside, Call light in reach. Care continues.
[2017-04-02 00:49] VITALS: BP 101/64; PULSE 69; RESP 16; O2SAT 97
[2017-04-02] MEDS: HYDROcodone-APAP 5-325 mg Tablet PO PRN ×2 (03:26→07:51)
[2017-04-02] MEDS: Piperacillin-Tazo 3.375 Gm Inj 3.375 GM in Dextrose 5% Minibag Plus 50 ML IV SCH (05:51)
[2017-04-02 05:55] VITALS: BP_SYST 89; BP_SYST 93; BP_DIAS 57; BP_DIAS 58; PULSE 61; RESP 16; O2SAT 95
[2017-04-02 06:03] LABS: BASOPHILS % (AUTO) 0.1 % (0-3); EOSINOPHILS % (AUTO) 0.6 % (0-5); MONOCYTES % (AUTO) 9.2 % (4-12); Mean Corpuscular Hemoglobin 32.8 pg (27.0-35.0); Mean Corpuscular Volume 98.5 fL (81-100); NEUTROPHILS % (AUTO) 78.9 % (40-74); Platelet Count 94 bil/L (150-400)
[2017-04-02 06:19] VITALS: PULSE 61
[2017-04-02] MEDS ORDERED: HYDR-4003 PO (07:24)
[2017-04-02] MEDS ORDERED: POLY17PO6 PO (07:24)
[2017-04-02] MEDS: 0.9% Sodium Chloride 1,000 ML IV SCH (07:53)
[2017-04-02] MEDS ORDERED: Glucose 40% Oral Gel 15 Gm Tube PO PRN (08:20)
--- NOTE | 2017-04-02 08:34 | NUR ---
Social Work: Screening D: EMR reviewed. Pt is a 61 y/o male admitted for febrile illness, diarrhea per H&P. Pt's insurance is [employer] and PCP is Moshe Arvizu MD. Pt is also followed bt oncologist for cancer diagnosis. Pt did not present to ER with symptoms related to cancer. Pt does not screen in for a full-assessment. SW will consult with MD during multidisciplinary rounds to further determine pt's needs and possible full assessment. Pt received appendectomy in OR on 04/01. Per EMR, pt has been alert and oriented x3 post-op. Pt is ambulating independently in room with a steady gate. Pt has no complaints of pain or nausea and spouse has been with pt at bedside. Pt's spouse is Abbey Moreno [phone]. Pt declined DPOA/advanced directive ppw upon admit. Pt lives at home with his spouse in [place]. SW will continue to follow and complete assessment if needs are indicated in multidisciplinary rounds. A: Pt who is independent at baseline P: Pt anticipated to discharge home. SW will consult with medical team in multidisciplinary rounds to determine and further SW needs. SW will continue to follow. NARCISO Munoz
--- NOTE | 2017-04-02 09:06 | PCM.DIMED ---
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 You were found to have acute appendicitis and underwent successful appendectomy on 04/01. Please continue pain medications as prescribed. Please follow-up with surgeon Dr Ramirez in 1 week. Follow-up Provider: Moshe Cloud MD Follow-up with PCP in: 2 weeks Provider: Onesimo Ramirez MD Follow-up in: 1 week Jim Hawkins MD Apr 02, 2017 09:06
[2017-04-02 10:00] VITALS: BP 98/69; PULSE 59; RESP 16; O2SAT 94
--- NOTE | 2017-04-02 11:00 | PROG NOTE ---
[address] [address] PROGRESS NOTE PATIENT: RUPINDER GARRETT : 1955 MR#: [id number] ADMIT: 04/01/2017 JOB ID: [id number] DATE: 04/02/2017 SUBJECTIVE: The patient is seen in followup. He feels pretty well this morning. He has no nausea. He is hungry. He has minimal pain, most significant along his left-sided laparoscopy incision. OBJECTIVE: Temperature 36.6, pulse 61, blood pressure 93/58, saturation 95% on 2 liters. General: He is resting in bed in no acute distress. Chest is clear. Heart regular rate and rhythm, no murmurs. Abdomen is soft, nondistended. His incisions are clean with no erythema. LABORATORIES: White count is 8.7, hematocrit 32.7, platelets 94, creatinine 0.64. Glucose 194. ASSESSMENT AND PLAN: A 61-year-old man with acute appendicitis, non-perforated, status post laparoscopic appendectomy. He is doing well clinically. I recommend stopping antibiotics. I think he can be discharged to home today. He should follow up in Surgery Clinic in one week for wound check.
[2017-04-02] MEDS ORDERED: Insulin LISPRO 300 Unit/3 mL Inj SUBQ SCH (12:00)
--- NOTE | 2017-04-02 12:30 | NUR ---
discharge of patient reviewed discharge instructions with patient and patient's , pt verbalized understanding. Pt discharged by walking out with prescriptions and instructions. IV and Telemetry previously discontinued. Pt left with to home self care.
--- NOTE | 2017-04-02 12:31 | NUR ---
Social Work: Readiness for Discharge/Multidisciplinary Rounds D: EMR reviewed. Pt is on day 1 of hospitalization admitted [facility]. Readmit risk score of 1. Pt discussed in multidisciplinary rounds - pt is medically stable to discharge home today via POV. MD did not indicate and SW discharge needs. No SW needs identified. Pt lives at home with his spouse in [place]. Pt to transport home with spouse via POV. A: Pt who is independent at baseline P: Pt to discharge home today with spouse via POV. SW consulted medical team in multidisciplinary rounds to determine and further SW needs. No SW needs identified, no MD orders received. SW will continue to follow until time of transport. NARCISO Munoz
--- NOTE | 2017-04-02 12:34 | NUR ---
Social Work: Discharge D: EMR reviewed. Pt is on day 1 of hospitalization admitted [facility]. Readmit risk score of 1. Pt discussed in multidisciplinary rounds - pt is medically stable to discharge home today via POV. MD did not indicate and SW discharge needs. No SW needs identified. Pt lives at home with his spouse in [place]. Pt to transport home with spouse via POV. A: Pt who is independent at baseline P: Pt to discharge home today with spouse via POV. SW consulted medical team in multidisciplinary rounds to determine and further SW needs. No SW needs identified, no MD orders received. SW will continue to follow until time of transport. NARCISO Munoz
--- NOTE | 2017-04-02 13:52 | PCM.DC.MED ---
Discharge Summary Date of Service Apr 02, 2017 Dates of Hospitalization Date of Hospital Admission Apr 01, 2017 at 00:50 Date of Discharge: Apr 02, 2017 Providers: Admitting Physician: Sarah Larsen DO Primary Care Physician: Moshe Cloud MD Attending Physician: Jim Hawkins MD Diagnosis at Time of Discharge Diagnosis at Time of Discharge Acute appendicitis status post appendectomy, resolved High-risk chronic lymphocytic leukemia Type 2 Diabetes Coronary artery Disease Hypertension Hyperlipidemia Procedures XRay, CTs & MRIs Reviewed by author, negative for acute pathology. Invasive Procedures Date of Service: Apr 01, 2017 Pre Operative Diagnosis Acute appendicitis Post Operative Diagnosis Same, nonperforated Procedure: Laparoscopic appendectomy Surgeon and Immigration Specialist: Surgeon: Onesimo Garcia MD Assistants: Bertram Horton PA-C Indication for Procedure 61-year-old man with a history of CLL who presented with right flank pain. He was initially leukopenic, but then today had a white blood cell count of 12. He had been febrile, with diarrhea, nausea and vomiting. A CT scan showed a distended appendix to 1.3 cm with periappendiceal inflammatory change. After discussion of risks and benefits, he agreed to proceed with laparoscopic appendectomy. Findings: The appendix was distended but not perforated. A small iatrogenic perforation occurred during positioning of the stapler. Brief History per HPI Sher Dickerson is a 61-year-old man with past medical history significant for mild diabetes, hypertension, dyslipidemia, coronary artery disease, prior PR in June 2014, CLL who presented to the [facility] Emergency Department due abdominal pain that started today. It began as epigastric and felt like "gas" and migrated down to the RLQ but feels fairly mild. The patient also noted nausea, vomiting, diarrhea, malaise, and a fever of 102.7 which was measured at home. He denies any hematemesis, hematochezia, dysuria, frequency, chest pain, cough. Reports no significant symptoms. No sick contacts. Denies any recent travel or antibiotic use. In the emergency department his vitals were stable. He was given 1L NS. Oncology was consulted by the ED physician who agreed to admission but no antibiotics were recommended. The patient has completed 4 cycles of FCR and is monitored without active therapy currently. Patient's white count during his last oncology visit was normal at 5.7 Hospital Course Sher Dickerson is a 61-year-old man with past medical history significant for mild diabetes, hypertension, dyslipidemia, coronary artery disease, prior PR in June 2014, CLL who presented to the [facility] Emergency Department due fever and abdominal pain that started today. #Acute appendicitis status post appendectomy 04/01 -CT scan showed distended appendix. Underwent Successful appendectomy -Procalcitonin markedly elevated at 81. Afebrile. No tachycardia -Discussed case with surgeon Dr Garcia , appendix was not ruptured. He recommends discharge home on pain medications. Tolerating diet. Discharge home #High-risk chronic lymphocytic leukemia -Completed 4 cycles of FCR. Chronic issues, present on admission, stable: #Likely history of Gilbert's disease -Previously noted mild elevation of T. Bili without evidence of cholecystitis. Outpatient follow-up #Type 2 Diabetes -Resume Metformin #Coronary artery Disease - Stable with no anginal symptoms or equivalent symptoms - continue Aspirin and Plavix - continue Statin and beta jessi #Hypertension - continue Losartan 25 mg daily, Aldactone 12.5 mg daily and Metoprolol 25 mg daily #Hyperlipidemia - Atorvastatin 20 mg daily and Fenofibrate 48 mg daily Discharge to home Condition stable Exam Vital Signs (Last) Date Time Temp Pulse Resp B/P Pulse Ox O2 Delivery O2 Flow Rate FiO2 04/02/17 10:00 36.6 59 16 98/69 94 Room Air 04/02/17 05:55 2.00 Exam General: No acute distress, well-developed, well-nourished, appropriately interactive HEENT: Normocephalic, atraumatic. External ears without defect. Pupils equal, round, and reactive to light and accommodation. Anicteric sclerae, moist conjunctivae, and no lid lag. Oropharynx free of erythema and cobble stoning with moist mucosa. Neck: Supple with full range of motion. No jugular venous distension. No lymphadenopathy or thyromegaly. Cardiovascular: Regular rate and rhythm with no murmurs, rubs, or gallops appreciated Pulmonary: Clear to auscultation bilaterally with no crackles, wheezes, or rhonchi. Normal respiratory effort with no use of accessory muscles. Abdomen: Bowel tones present. Obese. Soft, mild tenderness to palpation of RLQ, cleanly dressed laparoscopic site Extremities: No clubbing, cyanosis, edema, or lymphadenopathy appreciated. Skin: Normal temperature, turgor, and texture; no rash, ulcers, or subcutaneous nodules appreciated. Neurological: Cranial nerves grossly intact. Normal muscle strength, tone, and bulk. Normal speech. No known gait impairment. Psychiatric: Normal mood and affect. Alert and oriented to person, place, and time. Test 03/31/17 21:55 03/31/17 22:52 04/01/17 01:33 04/01/17 09:20 Hematology Comments Lipase 22U/L (13-60) Hold Siegel Top Tube Received (Received) Urine Color Yellow (YELLOW) Urine Appearance Clear (CLEAR,HAZY) Urine pH 6.0 (5.0-8.0) Urine Specific [place] 1.010 (1.003-1.035) Urine Protein Negativemg/dL (NEG,TRACE) Urine Glucose (UA) 500mg/dL (NEGATIVE) Urine Ketones Negativemg/dL (NEGATIVE) Urine Occult Blood Trace (NEGATIVE) Urine Nitrite Negative (NEGATIVE) Urine Bilirubin Negative (NEGATIVE) Urine Urobilinogen Normalmg/dL (NORMAL) Urine Leukocyte Esterase Negative (NEGATIVE) Urine RBC 0-2/hpf (0-2) Urine WBC 0-5/hpf (0-5) Urine Epithelial Cells Occasional/hpf (NONE-MOD) Urine Crystals None seen (NONE SEEN) Urine Bacteria None/hpf (NONE-FEW) Urine Hyaline Casts None/lpf (NONE) Urine Granular Casts None seen (NONE SEEN) Urine Waxy Casts None seen (NONE SEEN) Urine Red Blood Cell Casts None seen (NONE SEEN) Urine White Blood Cell Casts None seen (NONE SEEN) Urine Mucus Present (None Seen) Urine Trichomonas None seen (NONE SEEN) Urine Yeast None (NONE SEEN) Urinalysis Comment None Urine Culture Reflexed Not indicated Direct Bilirubin 0.4mg/dL (0.0-0.3) Lactate Dehydrogenase 286U/L (100-190) Magnesium Level 1.7mg/dL (1.6-2.6) Procalcitonin 81.10ng/mL (0.00-0.08) Test 04/02/17 04:50 White Blood Count 8.7th/mm3 (3.8-10.1) Red Blood Count 3.32mil/mm3 (4.40-5.80) Hemoglobin 10.9g/dL (13.8-17.2) Hematocrit 32.7% (41.0-50.0) Mean Corpuscular Volume 98.5fL (81-100) Mean Corpuscular Hemoglobin 32.8pg (27.0-35.0) Mean Corpuscular Hemoglobin Concent 33.3% (32.0-37.0) Red Cell Distribution Width 13.5% (12.3-15.4) Platelet Count 94bil/L (150-400) Neutrophils (%) (Auto) 78.9% (40-74) Lymphocytes (%) (Auto) 10.6% (14-46) Monocytes (%) (Auto) 9.2% (4-12) Eosinophils (%) (Auto) 0.6% (0-5) Basophils (%) (Auto) 0.1% (0-3) Sodium Level 136mEq/L (134-144) Potassium Level 4.1mEq/L (3.5-5.2) Chloride Level 101mEq/L (97-108) Carbon Dioxide Level 22mmol/L (18-29) Blood Urea Nitrogen 10mg/dL (8-27) Creatinine 0.64mg/dL (0.76-1.27) Estimat Glomerular Filtration Rate 135mL/min (>59) Glucose Level 194mg/dL (60-99) Calcium Level 8.2mg/dL (8.5-10.1) Total Bilirubin 1.0mg/dL (0.0-1.2) Aspartate Amino Transf (AST/SGOT) 22U/L (0-50) Alanine Aminotransferase (ALT/SGPT) 22U/L (0-44) Alkaline Phosphatase 45U/L (25-160) Total Protein 6.2g/dL (6.4-8.4) Albumin 3.2g/dL (3.4-5.0) Discharge Medications Discharge Medications ([Vit D3]) 2,000 IU PO DAILY (Reported) Aspirin (Aspirin) 81 Mg Tablet 81 MG PO DAILY (Reported) Atorvastatin (Lipitor) 20 Mg Tablet 20 MG PO DAILY (Reported) Clopidogrel (Clopidogrel) 75 Mg Tablet 75 MG PO DAILY (Reported) HOLD FOR SURG Fenofibrate Nanocrystallized (Fenofibrate) 48 Mg Tablet 48 MG PO DAILY (Reported ) Losartan Potassium (Losartan Potassium) 50 Mg Tablet 25 MG PO DAILY (Reported) Metformin (Metformin) 500 Mg Tablet 500 MG PO BID (Reported) Metoprolol Succinate ER (Metoprolol Succinate ER) 50 Mg Tab.er.24h 25 MG PO DAILY (Reported) Multivitamin (Multi Vitamin Daily) 1 Each Tablet 1 EACH PO DAILY (Reported) Nitroglycerin SL (Nitroglycerin SL) 0.4 Mg Tab.subl 0.4 MG SL PRN (Reported) Polyethylene Glycol 3350 (Miralax) 17 Gm Powd.pack 17 GM PO DAILY Prescribed by: ONESIMO GARCIA MD Spironolactone (Spironolactone) 25 Mg Tablet 12.5 MG PO DAILY (Reported) Zinc Gluconate (Zinc) 50 Mg Tablet 50 MG PO DAILY (Reported) As needed Hydrocodone-Acetaminophen 5-325 mg (Hydrocodone-Acetaminophen 5-325 mg) 1 Each Tablet 1-2 TABLET PO Q4H PRN PRN For Moderate Pain Prescribed by: ONESIMO GARCIA MD Miscellaneous Medications [place]-3 Fatty Acids/Fish Oil (Fish Oil 1,200 mg Softgel) 1 Each Capsule 2 EACH PO (Reported) Followup Plan Disposition: Home Discharge Diet: Low fat, Low Sodium, Diabetic Discharge Activity: Limited until seen by PCP Patient Instructions You were hospitalized due to abdominal pain. You were found to have acute appendicitis and underwent successful appendectomy on 04/01. Please continue pain medications as prescribed. Please follow-up with surgeon Dr Garcia in 1 week. Follow-up Provider: Moshe Cloud MD Follow-up with PCP in: 2 weeks Provider: Onesimo Garcia MD Follow-up in: 1 week Time spent 25 minutes copies to: Onesimo Garcia MD; Moshe Cloud MD, Melaku MD Apr 02, 2017 13:52
[2017-04-02] MEDS ORDERED: Heparin 5,000 Unit/mL Inj SUBQ SCH (20:00)
--- NOTE | 2017-04-04 16:51 | PATH ---
SURGICAL PATHOLOGY Attending Physician:Luca Arnold CASE STATUS: Signed Out PATIENT NAME: RUPINDER GARRETT PID: [id number] : 1955 DATE COLLECTED:04/01/2017 00:00 SPECIMEN: Appendix CLINICAL HISTORY: FEBRILE DIARRHEA 1). APPENDIX FINAL DIAGNOSIS: A.APPENDIX, APPENDECTOMY: ACUTE APPENDICITIS WITH SEROSITIS. FIBROUS OBLITERATION OF THE TIP OF THE APPENDIX. NEGATIVE FOR NEOPLASM. ICD10 K35.80 GROSS DESCRIPTION: The specimen is received in one formalin filled container labeled with the patient's name, sublabeled "appendix" and consists of one cylinder of quick appendix measuring 4.5 x 1.0 x 1.0 CM. The serosal surface is light quick, smooth and glistening. There is a large amount of attached fatty tissue. Sectioning reveals the wall to be thickened to approximately 0.2-0.3 CM the lumen contains a light quick-brown friable material. Rep. sections including the tip (sectioned longitudinally), proximal margin (inked blue), and a random cross-sections are submitted in one cassette. 04/03/2017DC MICRO DESCRIPTION: See diagnosis. ICD-9 CODES: CPT CODES: 1: 41878 Electronically Signed Out Ever Mcginnis MD, Ph.D. [facility] [address], [place] [address] Technical component performed at [facility], [address] [place] [address] Ave[address], [place], [address]
== END 2017-04-02 12:30 | disposition home or self-care (01) ==
LOC: SED 21:26 → OSC 04-01 00:50
PROVIDERS: ADMIT Internal Medicine; ATTEND Internal Medicine
DX: K35.80 Unspecified acute appendicitis (principal); C91.10 Chronic lymphocytic leukemia of B-cell type not having achieved remission; E11.9 Type 2 diabetes mellitus without complications; I25.10 Atherosclerotic heart disease of native coronary artery without angina pectoris; I10 Essential (primary) hypertension; E78.5 Hyperlipidemia, unspecified; I25.2 Old myocardial infarction; Z92.21 Personal history of antineoplastic chemotherapy; Z92.3 Personal history of irradiation; Z79.84 Long term (current) use of oral hypoglycemic drugs; Z79.01 Long term (current) use of anticoagulants; Z79.82 Long term (current) use of aspirin
CPT/HCPCS: 36415; 44970; 71010; 74177; 80053; 81000; 82247; 82274; 82948; 83615; 83690; 83735; 84145; 85025; 87040; 88304; 96361; 96365; 96366; 99285; G0378; J0330; J1644; J1815; J2405; J2543; J2704; J2710; J3010; J7030; J7120; Q9967